=== PATIENT | female | born 1950 | race Caucasian/White ===

== ENCOUNTER → 2017-08-01 | Outpatient (CLI) | payer MEDICARE ==
[2017-08-01 13:16] LABS: INR 0.96
== END ==
LOC: M SMT 10:44
PROVIDERS: ATTEND Thoracic Surgery (Cardiothoracic Vascular Surgery)
DX: C34.32 Malignant neoplasm of lower lobe, left bronchus or lung (principal); E22.2 Syndrome of inappropriate secretion of antidiuretic hormone

== ENCOUNTER → 2017-08-07 | Outpatient (CLI) | payer MEDICARE ==
[~2017-08-07] MED LIST: LIDOCAINE 1% MDV 20ML VIAL As Ordered ONE
--- NOTE | 2017-08-07 10:14 | REP ---
CHEST X-RAY: PA view. HISTORY: The patient is status post CT guided needle biopsy for left lower lobe nodule. FINDINGS: There is no visible pneumothorax on either side. Pleural angles are sharp. Cardiomediastinal silhouette is unremarkable. IMPRESSION: No pneumothorax seen. Signed by Phillip Thayer MD 08/07/2017 01:02 P
--- NOTE | 2017-08-07 16:43 | REP ---
CT GUIDED LEFT LOWER LOBE LUNG BIOPSY The procedure was performed under the direct supervision of Dr. Thayer. The patient has a history of a mass in the posterior aspect of the superior segment of the left lower lobe which is hypermetabolic seen on a previous PET scan performed at [facility] on 07/19/2017. The risks and benefits of the procedure were explained to the patient and informed consent was obtained. The left lower lobe lung mass was localized using CT guidance. The skin was prepped and draped in a sterile fashion. 1% Xylocaine was used as a local anesthetic. Using CT guidance a 19/20 gauge coaxial needle biopsy system was inserted and advanced in the mass. Six core biopsy samples were obtained and sent to lab. The patient tolerated the procedure well and there were no immediate complications. After the appropriate amount of monitored convalescence the patient was discharged from the department. Reviewed by RUBY Major 08/07/2017 04:06 PSigned by Phillip Thayer MD 08/07/2017 04:35 P
== END ==
LOC: M RADPRO 08:43
PROVIDERS: ATTEND Thoracic Surgery (Cardiothoracic Vascular Surgery)
DX: C34.32 Malignant neoplasm of lower lobe, left bronchus or lung (principal); Z79.899 Other long term (current) drug therapy; Z88.1 Allergy status to other antibiotic agents; Z88.8 Allergy status to other drugs, medicaments and biological substances

== ENCOUNTER → 2017-08-14 | Outpatient (REF) | payer MEDICARE | LOC: M LAB REF 14:00 | PROVIDERS: ATTEND Internal Medicine | DX: C34.32 Malignant neoplasm of lower lobe, left bronchus or lung (principal) ==